=== PATIENT | female | born 1980 | race African-American/Black ===

== ENCOUNTER 2021-04-06 19:40 | Emergency (ER) | payer OTHER, SELFPAY ==
[2021-04-06 19:49] VITALS: BP 122/81; PULSE 73; RESP 16; TEMP 36.3; O2SAT 97
--- NOTE | 2021-04-06 19:53 | ED.GENADULT ---
HPI - General Adult General Chief complaint: Unspecified Stated complaint: side and back spasms Source: patient Mode of arrival: ambulatory Limitations: no limitations History of Present Illness HPI narrative: 41 y/o AA female. PMHx Non-contributory. Presents to [facility] today with acute complaints of low back pain, intermittently radiating down posterior RT buttock and thigh. She tells me she has been hiking and engaging in more moderate exercise regimen. No falls or acute injury has been identified. No abdominal pain, flank pain, femaleurogen concern. No loss of lower extremity sensation or bowel/bladder control. Related Data Home Medications Medication Instructions Recorded Confirmed cetirizine 10 mg capsule 10 mg PO DAILY 12/30/20 montelukast 10 mg tablet 10 mg PO DAILY 12/30/20 04/06/21 multivitamin 1 tablet PO DAILY 12/30/20 04/06/21 tolterodine 4 mg capsule,extended 4 mg PO DAILY 12/30/20 04/06/21 release 24 hr valacyclovir 1 gram tablet 1,000 mg PO DAILY 12/30/20 04/06/21 citalopram 40 mg PO DAILY 04/06/21 04/06/21 Allergies Allergy/AdvReac Type Severity Reaction Status Date / Time clindamycin Allergy Unknown Rash Verified 04/06/21 19:43 oxybutynin [From Ditropan] AdvReac Severe hallucinati Verified 04/06/21 19:43 ons Review of Systems Review of Systems: CONSTITUTIONAL: Denies fever, chills, sweats. EYES: Denies visual changes, redness, discharge. ENT: Denies rhinorrhea, congestion, sore throat, otalgia. CARDIOVASCULAR: Denies chest pain, palpitations, edema. RESPIRATORY: Denies dyspnea, wheezing, cough GASTROINTESTINAL: Denies abdominal pain, nausea, vomiting, diarrhea. GENITOURINARY: Denies dysuria, hematuria, abnormal discharge SKIN: Denies rash or itching. MUSCULOSKELETAL: back pain. No additional joint pain, or myalgia. NEUROLOGIC: Denies numbness, or focal weakness. PSYCHIATRIC: Denies anxiety or depression. All systems reviewed & are unremarkable except as noted in HPI and below PMFSH Past Medical History Medical History Anxiety Asthma History of Seasonal allergies Tubal ligation evaluation Surgical History Surgical History History of laparoscopy endometriosis ablation [place] teeth removed Family History Family History Father Alcoholism Asthma Diabetes mellitus Hypertension Depression Mother Hypertension Depression Sibling Hypertension Depression Heart disease Son Asthma Grandparent Alcoholism Cancer Diabetes mellitus Hypertension Depression Social History Social History (Updated 12/30/20 @ 15:38 by Ly Casey MA) Smoking status: Never smoker Alcohol intake: current Substance use: never Exam Narrative: GENERAL: This is a well-nourished, well-developed adult, in no apparent distress. HEAD: normocephalic, atraumatic. EYES: PERRL. Sclera clear/white. EARS: External ears normal, auditory canals clear and without drainage, TMs normal. NOSE: External nose normal. Positive Rhinorrhea, no obstruction, nares patent. THROAT: Mucous membranes moist, posterior pharynx clear. No exudates. NECK: Neck supple, non-tender without lymphadenopathy, masses or thyromegaly. CARDIOVASCULAR: Regular rate and rhythm without murmurs, gallops, or rubs. Pulses intact RLE. RESPIRATORY: Clear to auscultation. Breath sounds equal bilaterally. No wheezes, rales, or rhonchi. GASTROINTESTINAL: Abdomen soft, non-tender, nondistended. Bowel sounds are active. No guarding. No CVA tenderness. SKIN: warm, intact with no suspicious lesions or rash, good texture and turgor. NEURO: Alert, active, and age appropriate. No focal neurologic deficits. Good sensation and discrimination RLE. EXTREMITIES: Positive SLR test at 45 degree. Remainder Negative. Course Vital Signs Vital s
== END 2021-04-06 20:04 | disposition home or self-care (01) ==
PROVIDERS: Emergency Provider Nurse Practitioner Adult Health
DX: M54.41 Lumbago with sciatica, right side (principal); J45.909 Unspecified asthma, uncomplicated; F41.9 Anxiety disorder, unspecified
CPT/HCPCS: 81003; 99213; G0463

== ENCOUNTER 2021-09-12 09:45 | Outpatient (CLI) | payer OTHER, SELFPAY ==
--- NOTE | ~2021-09-12 | US_ITS ---
EXAMINATION: US pelvic complete w TV EXAM DATE: 09/12/2021 10:30 INDICATION: N92.0 - Excessive and frequent menstruation with regular ... . TECHNIQUE: Pelvic transabdominal and transvaginal sonogram was performed. There are multiple graysca le and Doppler images available for interpretation. There is no prior study for comparison. FINDINGS: Uterus measures 8.7 x 6.8 x 5.3 cm, is retroverted with a fibroid in the fundus measuring 1.4 cm. Endometrial stripe measures 8 mm, within normal limits. There is no free pelvic fluid. Right adnexa: The ovary measures 2.8 x 2.9 x 2.5 cm and is morphologically normal. Ovarian vascular f low confirmed. Left adnexa: The ovary measures 1.9 x 2.2 x 2.0 cm and is morphologically normal. Ovarian vascular fl ow confirmed. IMPRESSION: Small fibroid. Reviewed, dictated and finalized at location B. IMPRESSION: Small fibroid.
== END 2021-09-12 09:46 | disposition home or self-care (01) ==
LOC: ANHIMG 09:54
PROVIDERS: Visit Provider Obstetrics & Gynecology
DX: N92.0 Excessive and frequent menstruation with regular cycle (principal); D25.9 Leiomyoma of uterus, unspecified
CPT/HCPCS: 76830; 76856

== ENCOUNTER 2021-10-09 13:18 | Outpatient (CLI) | payer OTHER, SELFPAY | END 2021-10-09 13:19 | disposition home or self-care (01) | PROVIDERS: Visit Provider Obstetrics & Gynecology | DX: Z01.818 Encounter for other preprocedural examination (principal); N92.0 Excessive and frequent menstruation with regular cycle | CPT/HCPCS: 36415; 86850; 86900; 86901 ==

== ENCOUNTER 2021-10-11 00:46 | Day surgery (SDC) | payer OTHER, SELFPAY ==
[2021-10-04 10:22] VITALS: BMI 35.5
--- NOTE | 2021-10-04 10:36 | PC.NURSE ---
Report to the Outpatient Waiting Room, entrance under the green pavilion located off [facility], at time 6:00 on date 10/11/21. OR Time: 7:30. - You and your visitor will be asked a series of questions to screen for COVID 19 for your protection. - A mask is required within the hospital. One visitor will be allowed to accompany the patient into the hospital. Patients visitor will be instructed to remain with patient at all times or leave the building. We will allow the visitor to come back to the postoperative area when patient is ready. Preoperative COVID Testing Requirements: TO BRING COPY OF CARD No COVID Test needed if: (proof is required; if not received patient will have Rapid Test prior to entry) - Patient has received COVID Vaccine at least 14 days prior to procedure date or - Patient has positive COVID test result within last 90 days of surgery date. COVID Test needed if above criteria is not met Patients may have clear liquids (water, carbonated beverages, clear teas, apple juice) until 3 hours prior to surgery (4:30) with a maximum of 20 ounces. - No food from midnight until time of surgery Take the following medications with a SIP of water the morning of surgery: NONE Medications to discontinue per physician: VITAMINS/SUPPLEMENTS Date to take last dose: 10/07/21 Please no make-up, nail luxembourgish, hairspray, perfume, deodorant, or body powder the day of surgery. No jewelry (including any body piercings) or valuables the day of surgery, leave them at home. Please take a shower or bath the night before, or the morning of, surgery with an antibacterial soap. Wear comfortable, loose fitting clothing. - Jewelry must be removed prior to entering the operating room. Rings and piercings that are not removed may be cut off. - The hospital will not accept responsibility for valuables. - Please leave all valuables, including medications, at home the day of surgery. If you are going home after surgery, a licensed spotter driver must drive you home. - NO public transportation without another adult. - We recommend that an adult stay with you for 24 hours following discharge. - We also recommend that you do not drive, make important decision, drink alcoholic beverages, or take any drugs that were not prescribed by your health care provider for at least 24 hours after your discharge time. Follow any additional instructions given to you from your surgeon. Telephone instructions given to KALYAN GOTTI and asked if any additional questions and then verbalized understanding. Patient advised to call surgeon office or pre surgery nurse liaison [phone] if any additional questions.
--- NOTE | 2021-10-09 20:07 | PM.IMHP ---
H&P: HPI History of Present Illness Date/Time: 10/09/21 20:07 Patient with history of menorrhagia causing anemia. She has been on iron therapy. She has had ultrasound which showed a small fibroid. She has had a prior salpingectomy and removal of essure coils. At that time she was noted to have adhesions of omentum to umbilicus and endometriosis implants which were ablated. She has had an endometrial biopsy which showed endometrial polyp. She has been given options of hormonal treatment and IUD or Nexplanon treatment for heavy bleeding., She has been informed of options for treatment of the menorrhagia and she desires definitive treatment with hysterectomy. Chief Complaint: heavy periods. Review of Systems Review of Systems: All systems reviewed & are unremarkable except as noted in HPI and below Cardiovascular: Cardiovascular: Reports no additional cardiovascular complaints, Denies chest pain and Denies dyspnea Respiratory: Respiratory: Reports no additional respiratory complaints and Denies dyspnea Gastrointestinal: Gastrointestinal: Reports abdominal pain, Denies change in bowel habits, Denies diarrhea, Denies nausea and Denies vomiting Integumentary/Breasts: Skin/Breast: Reports system reviewed and no additional complaints, except as docu Neurologic: Reports system reviewed and no additional complaints, except as documented PMFSH Past Medical History Medical History Anxiety Asthma exercise induced History of CHACHA (obstructive sleep apnea) CPAP Seasonal allergies Surgical History Surgical History H/O tubal ligation History of laparoscopy endometriosis ablation [place] teeth removed Family History Family History Father Alcoholism Asthma Diabetes mellitus Hypertension Depression Mother Hypertension Depression Sibling Hypertension Depression Heart disease Son Asthma Grandparent Alcoholism Cancer Diabetes mellitus Hypertension Depression Social History Social History Smoking status: Never smoker Alcohol intake: current Alcohol use details: 2/MONTH Substance use: never Substance use type: does not use Additional living arrangements comments: SON Spiritual care concerns: No Meds Home Medications and Allergies Home Medications Medication Instructions Recorded Confirmed Type cetirizine 10 mg capsule 10 mg PO HS 12/30/20 10/04/21 History montelukast 10 mg tablet 10 mg PO HS 12/30/20 10/04/21 History multivitamin 1 tablet PO HS 12/30/20 10/04/21 History tolterodine 4 mg capsule,extended 4 mg PO HS 12/30/20 10/04/21 History release 24 hr valacyclovir 1 gram tablet 1,000 mg PO HS 12/30/20 10/04/21 History citalopram 40 mg PO HS 04/06/21 10/04/21 History ferrous sulfate 325 mg (65 mg 325 mg PO BID #60 tablet 09/04/21 10/04/21 Rx iron) tablet scopolamine base 1 mg over 3 days See Rx Instructions .ROUTE ONCE #1 10/03/21 10/04/21 Rx transdermal patch ea docusate sodium [Colace] 100 mg PO HS 10/04/21 10/04/21 History Allergies Allergy/AdvReac Type Severity Reaction Status Date / Time clindamycin Allergy Unknown Rash Verified 10/04/21 10:20 oxybutynin [From Ditropan] AdvReac Severe hallucinati Verified 10/04/21 10:20 ons Exam Const: Orientation/consciousness: oriented to person and oriented to place HENMT: Head: normal to inspection Eyes: General: appearance normal, both eyes and all related structures Resp: Effort & Inspection: normal respiratory effort Auscultation: clear to auscultation bilaterally Cardio: Rate: regular rate Rhythm: regular rhythm GI: Inspection: normal to inspection GI Palp: No Rebound tenderness present : External Female Exam: normal external appearance Speculum Exam - Vagina: norm
--- NOTE | 2021-10-10 09:11 | WPDANESEPPF ---
Anes - Initial Pre Proc Eval Procedure: Operation Date: 10/11/21 07:30 Proposed Procedures p Robotic Total Hysterectomy with Bilateral Salpingectomy - Noble Chery MD Date/Time: 10/10/21 09:11 Surgeon: Noble Chery MD Pre Op Diagnosis: Menorrhagia Patient Data Age: 41 Gender: F Height: 1.7 m Weight: 102.97 kg Allergies Allergy/AdvReac Type Severity Reaction Status Date / Time clindamycin Allergy Intermediate Rash Verified 10/11/21 06:56 oxybutynin [From Ditropan] AdvReac Severe hallucinati Verified 10/11/21 06:56 ons Home Medications Medication Instructions Recorded Confirmed Type cetirizine 10 mg capsule 10 mg PO HS 12/30/20 10/04/21 History montelukast 10 mg tablet 10 mg PO HS 12/30/20 10/04/21 History multivitamin 1 tablet PO HS 12/30/20 10/04/21 History tolterodine 4 mg capsule,extended 4 mg PO HS 12/30/20 10/04/21 History release 24 hr valacyclovir 1 gram tablet 1,000 mg PO HS 12/30/20 10/04/21 History citalopram 40 mg PO HS 04/06/21 10/04/21 History ferrous sulfate 325 mg (65 mg 325 mg PO BID #60 tablet 09/04/21 10/04/21 Rx iron) tablet scopolamine base 1 mg over 3 days See Rx Instructions .ROUTE ONCE #1 10/03/21 10/04/21 Rx transdermal patch ea docusate sodium [Colace] 100 mg PO HS 10/04/21 10/04/21 History Patient hx anesthesia problems: none Family hx anesthesia problems: none Results Review: All pre-operative results and documents have been reviewed as part of the pre-operative evaluation. [facility] Past Medical History Medical History Anxiety Asthma exercise induced History of CHACHA (obstructive sleep apnea) CPAP Seasonal allergies Surgical History Surgical History H/O tubal ligation History of laparoscopy endometriosis ablation [place] teeth removed Family History Family History Father Alcoholism Asthma Diabetes mellitus Hypertension Depression Mother Hypertension Depression Sibling Hypertension Depression Heart disease Son Asthma Grandparent Alcoholism Cancer Diabetes mellitus Hypertension Depression Social History Social History Smoking status: Never smoker Alcohol intake: current Alcohol use details: 2/MONTH Substance use: never Substance use type: does not use Living arrangements: with family Additional living arrangements comments: SON Spiritual care concerns: No Anes - Eval Final PreProcedure Day of Procedure 10/10/21 09:11 Patient weight: obese Heart: regular rate and rhythm Lungs: clear to auscultation and normal air movement Airway: Mallampati scale class II Neurological: alert and oriented Last oral intake: >/= 8 hours ASA classification: III Emergent: no Anesthetic plan: proceed Anesthesia type and monitoring: general ETT and standard monitoring Results Review: All pre-operative results and documents have been reviewed as part of the pre-operative evaluation. Informed Consent: The patient's anesthetic plan and its attendant risks and benefits were discussed with the patient/family/POA. Questions were solicited and answers provided to the satisfaction of the patient/family/POA.
[2021-10-11] VITALS (11 sets, daily range): BP systolic 113–140; BP diastolic 70–86; PULSE 84–104; RESP 16–24; TEMP 36.4–37.2; O2SAT 95–100
--- NOTE | 2021-10-11 07:09 | WPDHPUPDATE1 ---
History and Physical Update Update Date/Time: 10/11/21 07:09 History and Physical has been reviewed, including an updated exam of the patient. There are NO changes in the patient's condition. Risks, benefits, and alternatives have been discussed and questions answered. Patient agrees to proceed with procedure.
[2021-10-11] MEDS: ACETAMINOPHEN 500 MG TABLET 1000 MG PO (07:15)
[2021-10-11] MEDS: KETOROLAC 15 MG/ML VIAL (*BKC) IV PUSH (07:15)
[2021-10-11] MEDS: LACTATED RINGERS 1,000 ML 30 ML IV CONT ×2 (07:16→09:37)
[2021-10-11] MEDS: ceFAZolin 2 GM/D5W 50 ML 2 GM/50 ML BAG IVPB (07:29)
[2021-10-11] MEDS: BUPIVACAINE HCL 0.5% PF 30 ML VIAL INFILTRATE (08:36)
[2021-10-11] MEDS: SCOPOLAMINE 1.5 MG PATCH TRANSDERM (09:45)
--- NOTE | 2021-10-11 09:48 | W.PM.PROC2 ---
Procedure Note - Detailed Date of Procedure 10/11/21 Pre-op Diagnosis Menorrhagia Endometrial polyp Post-op Diagnosis Same Procedure Performed Robotic assisted vaginal hysterectomy. Surgeon Noble Chery MD Silicator Jarred Garduno Anesthesia General Indications Patient with history of menorrhagia causing anemia. Also endometrial polyp on endometrial biopsy.She desired definitive treatment of menorrhagia with hysterectomy. Findings Enlarged uterus, no endometriosis visualized, engorged vessels on left. Description of Procedure After informed consent was obtained she was taken to the operating room and general endotracheal anesthesia was administered. She was placed in low lithotomy position. An exam under anesthesia was performed. Uterus mildly enlarged retroverted, no adnexal masses palpated. She was and prepped and draped in sterile fashion. Villa catheter placed in bladder. Attention was turned to the vagina speculum was inserted. Single-tooth tenaculum placed on anterior lip of the cervix the uterus sounded to 10 cm. The cervix was dilated to a 8 Fabian dilator. A size 10 uterine manipulator was inserted and secured. A size 3.0 colp cup was secured in the vagina. Then attention was turned to the abdomen with new sterile gloves. .25% marcaine injected subcutaneously. An incision was made horizontal 2 cm above the umbilicus. The subcutaneous tissue was dissected with S retractors. Anterior and posterior fascia grasped with Saida clamp and incised. Peritoneum entered. No adhesions palpated. The fascia sutures were secured with 0 vicryl. The robotic hysson port and camera inserted into abdomen and secured to fascial sutures. A Pneumoperitoneum of 15 mm per mercury was obtained. No abdominal or pelvic adhesions noted. A small incision was made approximately 6 cm lateral to the port on the left side of the port. A size 8mm robotic port was inserted under laparoscopic visualization into the abdomen on the left side. Attention was turned to the right side of the abdomen 6cm medial to the initial incision and incision was made and a size 8 robotic port was inserted under laparoscopic visualization. Superior and 5 mm medial to this a 10 assistant shift supervisor port was inserted under laparoscopic visualization. Patient was placed in Trendelenburg position to the point to allow the bowel to retract out of the pelvis. The robotic arms were attached. Attention was turned to the surgical console. The right round ligament was ligated with the vessel sealer. The anterior leaf of the broad ligament was dissected anteriorly. The vesicoperitoneum was dissected from lower uterine segment to past the middle of uterus. The right side of the bladder was dissected from the lower uterine segment and upper cervix. The right ovarian ligament was ligated with the vessel sealer. The a posterior leaf of the broad ligament was further dissected. The uterine vessels on the right were skeletonized. The ascending uterine vessels on the right were cauterized. The uterine vessels were ligated. Attention was turned to the left round ligament which was ligated and the anterior leaf of the broad ligament was dissected anteriorly. The rest of the vesicouterine peritoneum was dissected off of the uterus. Once the bladder was dissected below the colp cup then the posterior leaf of the broad ligament was further dissected. The ovarian ligament was ligated. The ascending uterine vessels were ligated with the syncroseal. The uterine arteries were skeletonized. The uterine arteries were ligated. The cardinal ligaments were ligated. This was done on both sides. An incision was made anterior colpotomy incision was made and this was carried around until the cervix was removed from the vagina. The uterus and cervix were removed through the vagina. The vaginal cuff was closed in a running fashion with 0 V lock suture. Hemostasis was noted. The pelvis was irrigated. Hemostasis noted. Hem
[2021-10-11] MEDS: fentaNYL CITRATE INJ (*CRX) 100 MCG/2 ML VIAL 25 MCG IV PUSH ×4 (09:59→10:10)
--- NOTE | 2021-10-11 11:00 | PC.NURSE ---
This patient, Kate Swift, was received from PACU on 10/11/21 at 1100. Patient/family oriented to unit policies and routines
[2021-10-11] MEDS: DEXTROSE 5%/LACTATED RINGERS 1,000 ML 125 ML IV CONT (11:23)
[2021-10-11] MEDS: KETOROLAC 30 MG/ML VIAL (*BKC) IV PUSH ×2 (11:23→17:50)
[2021-10-11] MEDS: HYDROcodone/acetaminophen (*CRX) 5-325 MG TABLET 1 TAB PO ×2 (12:18→17:53)
[2021-10-11] MEDS: DOCUSATE SODIUM 100 MG CAPSULE PO (20:29)
[2021-10-11] MEDS: CITALOPRAM HYDROBROMIDE 20 MG TABLET 40 MG PO (20:29)
[2021-10-11] MEDS: TOLTERODINE TARTRATE LA 4 MG CAP.ER.24H PO (20:30)
[2021-10-11] MEDS: MONTELUKAST SODIUM 10 MG TABLET PO (20:30)
[2021-10-12] MEDS: HYDROcodone/acetaminophen (*CRX) 5-325 MG TABLET 1 TAB PO ×2 (00:13→10:50)
[2021-10-12 04:41] VITALS: PULSE 95; RESP 19; O2SAT 99
[2021-10-12 04:50] VITALS: BP 127/80; PULSE 90; RESP 20; TEMP 36.6; O2SAT 99
[2021-10-12] MEDS: HYDROcodone/acetaminophen (*CRX) 10-325 MG TABLET 1 TAB PO (05:01)
--- NOTE | 2021-10-12 08:30 | PM.GYNPNOP ---
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 We will discharge home today. Discharge precautions discussed. 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 She has adequate pain control with the oral pain medicine. No leg pain. Has mild spotting. Tolerated regular diet. Has ambulated in the room. She set up in a chair without problems. I discussed her surgery with her yesterday afternoon. She has gone to the restroom urinated without problems. Positive flatus no bowel movement. Exam Const: General: comfortable and no acute distress Eyes: General: appearance normal, both eyes and all related structures Resp: Effort & Inspection: normal respiratory effort Auscultation: clear to auscultation bilaterally Cardio: Rate: regular rate Rhythm: regular rhythm GI: Other: Incisions clean dry and intact no erythema. She has bowel sounds. Appropriate tenderness. Extrem: Other: Nontender no edema. Psych: Mental Status: mental status grossly normal PROGRESSIVE AS[employer]ER AND [employer]TER - PN: Obj Data Vital Signs Vital Signs: Vital Signs - 24 hr 10/11/21 09:37 10/11/21 09:50 10/11/21 10:05 Temperature 97.7 F Pulse Rate 102 H 89 90 Respiratory Rate 20 18 18 Blood Pressure 113/75 122/80 116/75 Pulse Oximetry 100 96 96 10/11/21 10:20 10/11/21 10:35 10/11/21 11:15 Temperature 98.9 F Pulse Rate 100 96 84 Respiratory Rate 19 18 18 Blood Pressure 126/80 118/77 125/74 Pulse Oximetry 95 96 98 10/11/21 15:30 10/11/21 19:40 10/11/21 23:20 Temperature 98.0 F 99 F 98.9 F Pulse Rate 104 H 90 91 Respiratory Rate 16 18 18 Blood Pressure 129/77 121/72 119/70 Pulse Oximetry 98 100 10/11/21 23:46 10/12/21 04:41 10/12/21 04:50 Temperature 97.9 F Pulse Rate 91 95 90 Respiratory Rate 24 H 19 20 Blood Pressure 127/80 Pulse Oximetry 99 99 99 Intake/Output Intake/Output: Intake & Output 10/09/21 10/10/21 10/11/21 10/12/21 23:59 23:59 23:59 23:59 Intake Total 2360 500 Output Total 3710 1000 Balance -1350 -500 Meds/Results Medications: Active Medications Generic Name Dose Route Start Last Admin Trade Name Freq PRN Reason Stop Dose Admin Hydrocodone Bitart/Acetaminophen 1 tab 10/11/21 09:23 10/12/21 00:13 Hydrocodone/Acetaminophen (*Crx) 5-325 Mg Tablet PO 1 tab Q3H PRN Administration Pain Rated 5 or Less Hydrocodone Bitart/Acetaminophen 1 tab 10/11/21 09:23 10/12/21 05:01 Hydrocodone/Acetaminophen (*Crx) 10-325 Mg Tablet PO 1 tab Q3H PRN Administration Pain Rated 6 or Greater Citalopram Hydrobromide 40 mg 10/11/21 21:00 10/11/21 20:29 Citalopram Hydrobromide 20 Mg Tablet PO 40 mg HS GISELA Administration Docusate Sodium 100 mg 10/11/21 21:00 10/11/21 20:29 Docusate Sodium 100 Mg Capsule PO 100 mg HS GISELA Administration Ketorolac Tromethamine 30 mg 10/11/21 09:23 10/11/21 17:50 Ketorolac 30 Mg/Ml Vial (*Bkc) IV PUSH 10/16/21 09:22 30 mg Q6H PRN Administration Pain Rated 4-6 Montelukast Sodium 10 mg 10/11/21 21:00 10/11/21 20:30 Montelukast Sodium 10 Mg Tablet PO 10 mg HS GISELA Administration Naloxone HCl 0.1 mg 10/11/21 09:23 Naloxone Hcl 0.4 Mg/Ml Vial IV PUSH Q2M PRN Respiratory rate less than 10 Ondansetron HCl 4 mg 10/10/21 09:57 Ondansetron Inj 4 Mg/2 Ml Vial IV PUSH ONCE PRN Nausea Ondansetron HCl 4 mg 10/11/21 09:23
[2021-10-12 08:35] VITALS: BP 136/79; PULSE 94; RESP 18; TEMP 37.3; O2SAT 97
--- NOTE | 2021-10-12 08:40 | PM.DS ---
DS: Admitting Diagnosis Discharge Date 10/12/2021 Admitting Diagnosis menorrhagia DS: Discharge Diagnosis Discharge Diagnosis (1) Status post hysterectomy: Code(s): Z90.710 - Acquired absence of both cervix and uterus Status: Acute (2) Menorrhagia: Code(s): N92.0 - Excessive and frequent menstruation with regular cycle Status: Acute DS: Summary Hospital Course Reason for hospitalization: patient admitted on 10/11 for a robotic hysterectomy. She underwent an uncomplicated robotic hysterectomy. Postoperatively she did well on the day of surgery she sat up in a chair was ambulating her [place] catheter was removed. She had adequate pain control with oral medication and was tolerating regular diet. On postop day 1 patient was doing well had positive flatus and was discharged home discharge precautions discussed. Hospital Course: see hospital course section Time Spent with Patient Time attestation: Total time spent providing and/or coordinating discharge services: Exam Const: General: comfortable and no acute distress Eyes: General: appearance normal, both eyes and all related structures Resp: Effort & Inspection: normal respiratory effort Auscultation: clear to auscultation bilaterally Cardio: Rate: regular rate Rhythm: regular rhythm GI: Inspection: normal to inspection Other: Incisions intact no erythema or drainage positive bowel sounds appropriate tenderness Skin: General skin exam: no rashes or lesions noted Extrem: General: normal to inspection and other ( nontender no edema) Psych: Appearance: grossly normal DS: Data Data Completed and Pending Pending studies at discharge: Pending at discharge 10/11/21 08:27 Surgical [PTH] Routine Discharge Plan Discharge Patient Disposition: Home, Self-Care Discharge Instructions: Post hysterectomy discharge instruction sheet. Pelvic rest. No lifting. No straining. Call for any temperature over 100.4. Aspect spotting for 4-6 weeks call if it is any heavy spotting or vaginal bleeding like a flow. Keep follow-up appointment. She take MiraLax until bowel movements are normal. Call for any leg pain or redness. Stand Alone Forms: General Discharge Instructions Follow-up/Referrals: Noble Chery MD [Physician] - Keep Reg. Scheduled Appt. Discharge Medications: New hydrocodone-acetaminophen 5-325 mg Tablet 1 tablet PO Q3H PRN (Reason: Pain Rated 5 Or Less) Qty: 30 RF: 0 ketorolac 10 mg tablet 10 mg PO Q6H PRN (Reason: pain) 5 Days Qty: 16 RF: 0 No Action citalopram 40 mg tablet 40 mg PO HS RF: 0 valacyclovir 1 gram tablet 1,000 mg PO HS RF: 0 tolterodine [Detrol LA] 4 mg capsule,extended release 24hr 4 mg PO HS RF: 0 montelukast [Singulair] 10 mg tablet 10 mg PO HS RF: 0 Zyrtec 10 mg capsule 10 mg PO HS RF: 0 multivitamin [Daily Multi-Vitamin] Tablet 1 tablet PO HS RF: 0 scopolamine base 1 mg over 3 days patch 3 day See Rx Instructions .ROUTE ONCE Qty: 1 RF: 0 docusate sodium [Colace] 100 mg capsule 100 mg PO HS RF: 0 ferrous sulfate [Iron (ferrous sulfate)] 325 mg (65 mg iron) tablet 325 mg PO BID Qty: 60 RF: 2
== END 2021-10-12 12:00 | disposition home or self-care (01) ==
LOC: ANHSURGERY 06:12 → ANHOB2 14:02
PROVIDERS: Visit Provider Obstetrics & Gynecology
PROC: (CPT 58552; principal; 2021-10-11 07:30)
DX: N92.0 Excessive and frequent menstruation with regular cycle (principal); N84.0 Polyp of corpus uteri; D64.9 Anemia, unspecified; N72 Inflammatory disease of cervix uteri; D25.1 Intramural leiomyoma of uterus; N80.0 Endometriosis of uterus; G47.33 Obstructive sleep apnea (adult) (pediatric); J45.909 Unspecified asthma, uncomplicated; F41.9 Anxiety disorder, unspecified; E66.9 Obesity, unspecified; Z68.35 Body mass index [BMI] 35.0-35.9, adult
CPT/HCPCS: 58552; S2900; 36415; 86850; 86900; 86901; 88307; 99199; A9270; J0690; J1100; J1200; J1885; J2250; J2405; J2704; J2710; J3010; J7030; J7120; J7121

== ENCOUNTER 2022-01-04 10:57 | Emergency (ER) | payer OTHER, SELFPAY ==
[2022-01-04 11:05] VITALS: BP 135/82; PULSE 94; RESP 16; TEMP 36.7; O2SAT 99
--- NOTE | 2022-01-04 11:05 | ED.URI ---
HPI - URI/Sore Throat General Chief Complaint: Upper Respiratory Infection Stated Complaint: sore throat Time Seen by Provider: 01/04/22 11:35 Source: patient and RN notes reviewed Mode of arrival: ambulatory Limitations: no limitations History of Present Illness HPI Narrative: 41-year-old female with history of asthma presents with concern for sore throat, nasal congestion, cough. Reports her symptoms started yesterday. Reports she had any COVID exposure to a friend. She reports she took a COVID test yesterday which was negative. She reports she has been taking [id number] medications with occasional relief. She denies shortness of breath, fever, chills, sweats. Reports upper body aches. She needs a refill on her albuterol inhaler MD elicited complaint: cough, sore throat and nasal congestion Related Data Home Medications Medication Instructions Recorded Confirmed cetirizine 10 mg capsule (Zyrtec) 10 mg PO HS 12/30/20 01/04/22 montelukast 10 mg tablet 10 mg PO HS 12/30/20 01/04/22 (Singulair) multivitamin (Daily Multi-Vitamin 1 tablet PO HS 12/30/20 01/04/22 tablet) tolterodine 4 mg capsule,extended 4 mg PO HS 12/30/20 01/04/22 release 24 hr (Detrol LA) valacyclovir 1 gram tablet 1,000 mg PO HS 12/30/20 01/04/22 citalopram 40 mg tablet 40 mg PO HS 04/06/21 01/04/22 Allergies Allergy/AdvReac Type Severity Reaction Status Date / Time clindamycin Allergy Intermediate Rash Verified 01/04/22 11:04 adhesive Allergy Mild Rash Verified 01/04/22 11:04 oxybutynin [From Ditropan] AdvReac Severe hallucinati Verified 01/04/22 11:04 ons Review of Systems Review of Systems: CONSTITUTIONAL: Reports malaise. Denies chills, sweats, or fever. EYES: Denies visual changes, redness, or discharge. ENT: Reports rhinorrhea, congestion, and sore throat. Denies sinus pain, otalgia CARDIOVASCULAR: Denies chest pain, palpitations, or edema. RESPIRATORY: Reports cough. Denies dyspnea. GASTROINTESTINAL: Denies abdominal pain, nausea, vomiting, diarrhea SKIN: Denies rash or itching. MUSCULOSKELETAL: Reports myalgia. NEUROLOGIC: Denies headache. All systems reviewed & are unremarkable except as noted in HPI and below PMFSH Past Medical History Medical History Anxiety Asthma exercise induced History of CHACHA (obstructive sleep apnea) CPAP Seasonal allergies Surgical History Surgical History H/O tubal ligation History of laparoscopy endometriosis ablation History of robot-assisted laparoscopic hysterectomy Partial hyst [place] teeth removed Family History Family History Father Alcoholism Asthma Diabetes mellitus Hypertension Depression Mother Hypertension Depression Sibling Hypertension Depression Heart disease Son Asthma Grandparent Alcoholism Cancer Diabetes mellitus Hypertension Depression Social History Social History Smoking status: Never smoker Alcohol intake: current Alcohol use details: 2/MONTH Substance use: never Substance use type: does not use Additional living arrangements comments: SON Spiritual care concerns: No Comments At time of signature, agree with nursing past medical, surgical, social and family history. There is no relevant family history pertinent to the presenting complaint Exam Narrative: GENERAL: Nontoxic appearing and in no acute distress. HEAD: Normocephalic EYES: PERRLA, conjunctivae clear ENT: Nares clear, turbinates edematous and erythematous, clear discharge. Mucous membranes moist. TM pearly finley with dull light reflex bilaterally; no tragal tenderness. Oropharynx not erythematous without lesions. Tonsils not enlarged and without exudate, no drooling, no hoarseness, no trismus, uvula midline. NECK: [place]
[2022-01-04 11:07] VITALS: BP 135/82; PULSE 94; RESP 16; TEMP 36.7; O2SAT 99
[2022-01-04 19:31] LABS: SARS-CoV-2 RNA PCR Positive
== END 2022-01-04 12:05 | disposition home or self-care (01) ==
PROVIDERS: Emergency Provider Nurse Practitioner
DX: U07.1 COVID-19 (principal); J45.990 Exercise induced bronchospasm; G47.33 Obstructive sleep apnea (adult) (pediatric); F41.9 Anxiety disorder, unspecified
CPT/HCPCS: 87426; 99213; C9803; G0463; U0003; U0005